=== PATIENT | male | born 1970 | race Two or more races ===

== ENCOUNTER 2024-06-21 08:07 | Emergency (ER) | payer MEDICAID, SELFPAY ==
[2024-06-21 08:08] VITALS: BMI 25.0
[2024-06-21 08:18] VITALS: BP 119/78; PULSE 62; RESP 16; TEMP 36.6; O2SAT 99
--- NOTE | 2024-06-21 08:41 | EDNOTE_ITS ---
Upper Extremity Injury RME/HPI General Chief Complaint: Extremity Injury, Upper Stated Complaint: CAT BITE TO LEFT HAND Time Seen by Provider: 06/21/24 08:15 Source: patient Arrival date/time: 06/21/24 08:07 This is a 54-year-old male who presents to the emergency department with a complaints of a cat bite to his left dorsum of hand. Neighbors kitten was near his dogs he attempted to grab the kitten to remove from the area subsequently biting his left hand. Patient did not attempt any interventions or take any OTC medications prior to ED visit. Patient denies any other associated symptoms or aggravating factors. No modifying factors, no radiation, no migration. Mode of arrival: ambulatory Limitations: no limitations Related Data Previous Rx's ?Medication ?Instructions ?Recorded albuterol sulfate 90 mcg/actuation 2 puff inhalation Q6H #6.7 grams 10/03/17 aerosol inhaler (Ventolin HFA) dicyclomine 20 mg tablet 20 mg PO QID PRN abdominal pain 06/10/18 #30 tabs hydrocodone 5 mg-acetaminophen 325 1 tab PO QID PRN pain #10 tabs 06/25/ mg tablet ([place]) amoxicillin 875 mg-potassium 1 tab PO BID #20 tabs 09/27/18 clavulanate 125 mg tablet (Augmentin) albuterol sulfate 90 mcg/actuation 2 puff inhalation Q6H PRN 08/27/20 aerosol inhaler (ProAir HFA) shortness of breath or wheezing #18 grams dexamethasone 6 mg tablet 6 mg PO QDAY #7 tabs 08/27/20 (Decadron) ibuprofen 800 mg tablet 800 mg PO TID PRN pain #30 tabs 10/19/21 amoxicillin 875 mg-potassium 1 tab PO BID 5 days #10 tabs 06/21/24 clavulanate 125 mg tablet Allergies Allergy/AdvReac Type Severity Reaction Status Date / Time No Known Allergies Allergy Unverified 06/21/24 08:09 Review of Systems Review of Systems Systems Reviewed: All systems reviewed, normal except as documented Narrative Review of Systems: Gen: No fever, no chills, no weight loss EYES: No discharge, no visual changes, no pain HEENT: No ear pain, no congestion, no sore throat PULM: No shortness of breath, no cough, no congestion CV: No chest pain, no dyspnea on exertion, no palpitations GI: No nausea, no vomiting, no diarrhea, no pain, no constipation : No frequency, no urgency,? no dysuria Musc/skel: No joint pain, no back pain Skin: No rash?, cat bite ED Exam General Limitations: Present no limitations General appearance: Present alert and in no apparent distress Head Head exam: Present atraumatic Eye Eye exam: Present normal appearance, PERRL and EOMI ENT ENT exam: Present normal exam, normal oropharynx and mucous membranes moist Neck Neck exam: Present normal inspection, full ROM and trachea midline Chest Chest inspection: Present normal inspection and symmetric chest wall rise Respiratory Respiratory exam: Present normal lung sounds bilaterally Cardiovascular Cardiovascular exam: Present regular rate, normal rhythm, normal heart sounds, +S1 and +S2 Abdominal Exam Abdominal exam: Present soft and normal bowel sounds Extremities Exam Extremities exam: Present full ROM Expanded Upper Extremity Exam Shoulder exam: Present normal inspection Arm exam: Present normal inspection Elbow exam: Present normal inspection Forearm/Wrist exam: Present normal inspection Hand L/R back image: 2 1. + Puncture wounds noted to left dorsum near base of first digit. No bleeding CMS intact Back Exam Back exam: Present normal inspection and full ROM Neurological Exam Neurological exam: Present alert, oriented X3 and CN II-XII intact Psychiatric Psychiatric exam: Present normal affect and normal mood Skin Skin exam: Present warm, dry, intact and normal color Course Quality Measures none Orders Category Date Time Status Tet,Diphth,Pertuss(Acell)-Tdap [Boostrix Vacc] Med 06/21/24 08:40 Discontinued 0.5 ml IMI .ONCE ONE Vital Signs Vital signs: Vital Signs Temperature 97.8 F 06/21/24 08:18 Pulse Rate 62 06/21/24 08:18 Respiratory Rate 16 06/21/24 08:18 Blood Pressure 119/78 06/21/24 08:18 Pulse Oximetry (%) 99 06/21/24 08:18 Oxygen Delivery Method Room Air 06/21/24 08:18 Extremity Injury MDM Narrative MDM Narrative:: This is a 54-year-old male healthy history of hyperlipidemia no history of immunosuppressant here for a cat bite to his left hand. Patient's hand was cleansed dressing apply no x-ray obtained today. Tdap updated. Advised patient we will consider prophylactic antibiotics. Advised to follow-up with his PCP in 2 days. Advised to return to the emergency if there is any worsening symptoms change in condition. Patient data External records reviewed:: [facility] previous records Clinical information provided by:: patient Social determinants that could affect healthcare access:: none Patient has the following chronic illnesses:: Hyperlipidemia How is presenting disease/condition affected by chronic disease/condition?: u neffected by Evaluation data The following diagnostics were reviewed and interpreted by me:: other (specify) Lab and/or radiology exams considered but not ordered:: Considered hand x-ray however full range of motion superficial wounds, no need for x-ray today. Interpretation Summary: Not applicable Medications / Prescriptions Medications or Prescriptions considered but not ordered:: No Medication administrations:: Medication Administration History Discontinued Medications Diphtheria/Tetanus/Acell Pertussis (Diphth,Pertuss(Acell),Tet Vac 0.5 Ml Vial) 0.5 ml IMi .ONCE ONE Stop: 06/21/24 08:41 Last Admin: 06/21/24 09:09 Dose: 0.5 ml Documented By: [facility] All medications administered and effective Consultations Consultation(s) initiated? (list below): No Diagnosis Upper Extremity Injury Differential Diagnosis: sprain and strain of wrist, fracture of wrist and other (Dog bite, cat bite, wounds) Most likely diagnosis given after review of the tests above:: Cat bite puncture hand Admission Indicated Admission indicated?: not indicated Admission Request Was there a request for admission?: No Disposition Plan Disposition Plan: Discharge Discharge Attestation Discharge Attestation: The patient and all family members were given an opportunity to ask questions and understood the discharge instructions. Discharge instructions specifically effects, indications for sooner follow up or return to the emergency department, and the expected course of current diagnosis. Patient condition: Stable Discharge Plan Plan Patient Disposition: HOME (Self Care) Patient condition on transfer: Stable Prescriptions/Referrals Prescriptions/Med Rec: New amoxicillin-pot clavulanate 875-125 mg tablet 1 tab PO BID 5 Days Qty: 10 0RF No Action albuterol sulfate [Ventolin HFA] 90 mcg/actuation HFA aerosol inhaler 2 puff INH Q6H Qty: 6.7 0RF Rx Instructions: administer with spacer amoxicillin-pot clavulanate [Augmentin] 875-125 mg tablet 1 tab PO BID Qty: 20 0RF albuterol sulfate [ProAir HFA] 90 mcg/actuation HFA aerosol inhaler 2 puff inhalation Q6H PRN (Reason: shortness of breath or wheezing) Qty: 18 0RF dexamethasone [Decadron] 6 mg tablet 6 mg PO QDAY Qty: 7 0RF dicyclomine 20 mg tablet 20 mg PO QID PRN (Reason: abdominal pain) Qty: 30 0RF hydrocodone-acetaminophen [[place]] 5-325 mg tablet 1 tab PO QID MDD 4 tabs PRN (Reason: pain) Qty: 10 0RF ibuprofen 800 mg tablet 800 mg PO TID PRN (Reason: pain) Qty: 30 0RF Problem List Clinical Impression: Cat bite of hand Patient/Caregiver Discharge Instructions Discharge Activity: activity as tolerated Education Materials: ED Cat Bite Additional Instructions: Se tratar? con profilaxis antibi?ticos. -comenzar la medicaci?n lo antes posible -Seguimiento con tu m?dico de cabecera en 2 d?as. Regrese al departamento de emergencias si alg?n s?ntoma empeora o alguna condici?n. Will treat with antibiotic prophylatic -start medications as soon as possible -Follow-up with your primary doctor in 2 days. Return to the emergency department if there is any worsening symptoms any condition. Print Language: [place]ian Stand Alone Forms: [facility] Award Info., Patient Portal Info Letter Attestation Attestation The patient was seen by the midlevel practitioner. I, the co-signing physician, was present during the entire ER visit. While I did not physically examine the patient, I was available for consultation as needed.
[2024-06-21] MEDS: DIPHTH,PERTUSS(ACELL),TET VAC 0.5 ML VIAL IMi (09:09)
--- NOTE | 2024-06-21 09:13 | PC.NURSE ---
bandaid with bacitracin ointment put on cat bite to left hand
== END 2024-06-21 09:14 | disposition home or self-care (01) ==
LOC: SERX 09:17
PROVIDERS: Emergency Provider Emergency Medicine; PCP Family Medicine
DX: S61.452A Open bite of left hand, initial encounter (principal); W55.01XA Bitten by cat, initial encounter; Z23 Encounter for immunization
CPT/HCPCS: 90471; 90715; 99282